=== PATIENT | male | born 1990 | race Caucasian/White ===

== ENCOUNTER 2020-03-07 03:29 | Observation (INO) ==
[2020-03-07 04:12] LABS: Basophils # 0.1 10*3/uL (0.0-0.2); Basophils % 0.5 % (0.0-0.8); Eosinophils # 0.2 10*3/uL (0.0-0.87); Eosinophils % 1.3 % (0.00-10.9); Hematocrit 46.4 VOL% (42.0-52.0); Hemoglobin 15.9 GM/DL (14.0-18.0); Immature Granulocytes % 0.2 %; Immature Granulocytes Absolute 0.03 #; Lymphocytes # 2.5 10*3/uL (1.4-4.0); Lymphocytes % 17.3 % (21.2-54.2); Mean Corpuscular HGB Conc 34.3 GM/DL (32-36); Mean Corpuscular Volume 88.7 FL (87-102); Monocytes % 5.8 % (1.7-12.7); Neutrophils % 74.9 % (38.7-73.9); Platelet Count 277 T/CUMM (130-400); Red Blood Count 5.23 MC/CUMM (3.8-5.5); White Blood Count 14.7 T/CUMM (4-12)
[2020-03-07] MEDS ORDERED: ONDANSETRON 4 MG/2 ML VIAL IV ONE (04:22)
[2020-03-07] MEDS ORDERED: MORPHINE 4 MG/1 ML VIAL IV STA (04:22)
[2020-03-07] MEDS ORDERED: SODIUM CHLORIDE 0.9% 1,000 ML IV STA (04:22)
[2020-03-07 04:32] LABS: Albumin 4.3 G/DL (3.4-5.0); Bilirubin,Total 1.1 MG/DL (0.2-1.0); Calcium 9.6 MG/DL (8.5-10.1); Osmolality,Calculated 274.7 MOS/KG (273-304); Total Protein 8.4 G/DL (6.4-8.3)
[2020-03-07 05:14] LABS: Bacteria,Urine Occasional /HPF (Few); Bilirubin,Urine Negative (Negative); Blood, Urine Moderate mg/dL (Negative); Glucose,Urine (UA) Negative (Negative); Ketones,Urine Negative (Negative); Mucus,Urine Occasional /LPF (Occasional); Nitrite,Urine Negative (Negative); Protein,Urine Negative; RBC,Urine 21 /HPF (0-4); Urine Appearance CLEAR (Clear); Urine Color Yellow (Yellow); Urine Specific Gravity 1.013 (1.001-1.035); Urine Urobilinogen < 2.0 EU/DL (0.2-1.0); WBC,Urine 1 /HPF (0-6)
[2020-03-07] MEDS ORDERED: ONDANSETRON 4 MG/2 ML VIAL IV PRN (05:41)
[2020-03-07] MEDS ORDERED: PROMETHAZINE 25 MG/1 ML VIAL IM PRN (05:41)
[2020-03-07] MEDS: SODIUM CHLORIDE 0.9% 1,000 ML IV SCH (08:27)
[2020-03-07] MEDS: HYDROmorphone 2 MG/1 ML VIAL IV PRN (08:27)
[2020-03-07] MEDS ORDERED: PANTOPRAZOLE 40 MG VIAL IV SCH (09:00)
[2020-03-07] MEDS ORDERED: fentaNYL 100 MCG/2 ML VIAL ONE (09:23)
[2020-03-07] MEDS ORDERED: LIDOCAINE 2% 5 ML VIAL ONE (09:23)
[2020-03-07] MEDS ORDERED: MIDAZOLAM 2 MG/2 ML VIAL ONE (09:23)
[2020-03-07] MEDS ORDERED: ROCURONIUM 50 MG/5 ML VIAL IV ONE (09:23)
[2020-03-07] MEDS ORDERED: propofoL 200 MG/20 ML VIAL IV ONE (09:23)
[2020-03-07] MEDS ORDERED: LIDOCAINE 1%/EPI INJ 20 ML VIAL ONE (09:51)
[2020-03-07] MEDS ORDERED: BUPIVACAINE 0.5% 50 ML VIAL ONE (09:51)
[2020-03-07] MEDS ORDERED: ONDANSETRON 4 MG/2 ML VIAL ONE (09:56)
[2020-03-07] MEDS ORDERED: DEXAMETHASONE 4 MG/1 ML VIAL ONE (09:56)
[2020-03-07] MEDS ORDERED: PHENYLEPHRINE 1 MG/10 ML SYRINGE IV ONE (09:56)
[2020-03-07] MEDS ORDERED: ceFAZolin 1,000 MG VIAL ONE (10:11)
[2020-03-07] MEDS ORDERED: LACTATED RINGERS 1,000 ML IV ONE (10:40)
[2020-03-07] MEDS ORDERED: NEOSTIGMINE 10 MG/10 ML VIAL ONE (10:42)
[2020-03-07] MEDS ORDERED: KETOROLAC 30 MG/1 ML VIAL ONE (10:42)
[2020-03-07] MEDS ORDERED: SEVOFLURANE 1 UNIT/15 MINUTE INH ONE (10:43)
[2020-03-07] MEDS ORDERED: GLYCOPYRROLATE 0.4 MG/2 ML VIAL ONE ×2 (10:43)
[2020-03-07] MEDS: PIPERACILLIN/TAZOBACTAM 3,375 MG in SODIUM CHLORIDE 0.9% 100 ML IV SCH ×2 (12:31→16:57)
[2020-03-07] MEDS ORDERED: KETOROLAC 15 MG/1 ML VIAL IV PRN (13:58)
[2020-03-07] MEDS: POTASSIUM CHLORIDE RIDER 10 MEQ in PREMIX 1 EACH IV PRN ×2 (16:58→19:04)
[2020-03-07] MEDS ORDERED: POTASSIUM CHLORIDE 20 MEQ TABLET PO PRN (19:07)
[2020-03-08] MEDS: SODIUM CHLORIDE 0.9% 1,000 ML IV SCH ×2 (00:28→12:54)
[2020-03-08] MEDS: HYDROmorphone 2 MG/1 ML VIAL IV PRN (00:30)
[2020-03-08] MEDS: PIPERACILLIN/TAZOBACTAM 3,375 MG in SODIUM CHLORIDE 0.9% 100 ML IV SCH ×2 (01:03→12:55)
[2020-03-08 05:44] LABS: Basophils % 0.2 % (0.0-0.8); Eosinophils # 0.1 10*3/uL (0.0-0.87); Eosinophils % 0.6 % (0.00-10.9); Hematocrit 41.5 VOL% (42.0-52.0); Immature Granulocytes % 0.4 %; Immature Granulocytes Absolute 0.06 #; Lymphocytes # 2.5 10*3/uL (1.4-4.0); Lymphocytes % 18.6 % (21.2-54.2); Mean Corpuscular HGB Conc 33.7 GM/DL (32-36); Mean Corpuscular Volume 89.8 FL (87-102); Mean Platelet Volume 9.3 FL (9.6-12.0); Monocytes % 10.2 % (1.7-12.7); Platelet Count 245 T/CUMM (130-400); Red Blood Count 4.62 MC/CUMM (3.8-5.5); Red Cell Distribution Width 12.1 % (9.3-17.3); White Blood Count 13.5 T/CUMM (4-12)
[2020-03-08 06:00] LABS: Albumin 3.7 G/DL (3.4-5.0); Bilirubin,Total 2.2 MG/DL (0.2-1.0); Calcium 9.3 MG/DL (8.5-10.1); Osmolality,Calculated 274.5 MOS/KG (273-304); Total Protein 7.4 G/DL (6.4-8.3)
[2020-03-08] MEDS ORDERED: Modafinil PO SCH (09:00)
[2020-03-08 11:47] VITALS: BP 126/75
== END 2020-03-08 11:41 | disposition home or self-care (01) ==
LOC: N.EDINP 03:29 → N.ED 03:29 → N.5E 05:59
PROVIDERS: ADMIT Family Medicine; ATTEND Family Medicine
PROC: LAPCHOL (2020-03-07 09:36)